=== PATIENT | male | born 1960 | race Caucasian/White ===

== ENCOUNTER 2016-09-11 21:06 | Emergency (ER) | payer OTHER ==
[2016-09-11 21:27] VITALS: BP 129/92
[2016-09-11] MEDS ORDERED: Cephalexin CAP* 500 MG PO ONE (21:45)
--- NOTE | 2016-09-11 21:54 | UC ---
Skin Complaint HPI - HPI Summary HPI Summary: 55 yo male was cleaning a shelf about a week ago FB left index finger since then red and swollen no f/c Td up to date - History of Current Complaint Chief Complaint: UCSkin Stated Complaint: LEFT INDEX FINGER PAIN Onset/Duration: Sudden Onset, Lasting Days Timing: Constant Onset Severity: Mild Current Severity: Mild Pain Intensity: 3 - worse if he touches it Pain Scale Used: 0-10 Numeric Location: Other - LIF Character: Swelling, Pain, Redness Aggravating: Touch Alleviating: Nothing Associated Signs & Symptoms: Positive: Tenderness Related History: Foreign Body - Allergy/Home Medications Allergies/Adverse Reactions: Allergies Allergy/AdvReac Type Severity Reaction Status Date / Time No Known Allergies Allergy Verified 09/11/16 21:23 Home Medications: Home Medications Cholesterol Medication 1 tab PO DAILY 09/11/16 [History Confirmed 09/11/16] Review of Systems Constitutional: Negative Skin: Negative Eyes: Negative ENT: Negative Respiratory: Negative Cardiovascular: Negative Gastrointestinal: Negative Genitourinary: Negative Motor: Negative Neurovascular: Negative Musculoskeletal: Negative Neurological: Negative Psychological: Negative All Other Systems Reviewed And Are Negative: Yes PMH/Surg Hx/FS Hx/Imm Hx Previously Healthy: Yes Endocrine History: Dyslipidemia - Surgical History Surgical History: None - Family History Known Family History: Positive: Hypertension - Social History Alcohol Use: None Substance Use Type: None Smoking Status (MU): Never Smoked Tobacco Physical Exam Triage Information Reviewed: Yes Appearance: Well-Appearing, Well-Nourished, Ill-Appearing Vital Signs: Initial Vital Signs Temp 98.8 F 09/11/16 21:23 Pulse 69 09/11/16 21:23 Resp 16 09/11/16 21:23 BP 129/92 09/11/16 21:23 Pulse Ox 96 09/11/16 21:23 Vital Signs Reviewed: Yes Eyes: Positive: Conjunctiva Clear ENT: Positive: Hearing grossly normal. Negative: Nasal congestion, Nasal drainage, Trismus, Muffled/hoarse voice Neck: Positive: Supple, Nontender Respiratory: Positive: Lungs clear, Normal breath sounds, No respiratory distress, No accessory muscle use Cardiovascular: Positive: RRR, No Murmur Musculoskeletal: Positive: ROM Intact Neurological Exam: Normal Neurological: Positive: Alert, Muscle Tone Normal Skin Exam: Other - see image Course/Dx - Diagnoses Provider Diagnoses: foreign body removal left index finger Procedures - Procedure Summary Procedure Summary: FOREIGN BODY REMOVAL time out sterile prep no anesthesia scab unroofed glass shard removed one drop of pus expressed tolerated procedure well Discharge - Discharge Plan Condition: Stable Disposition: HOME Prescriptions: Cephalexin CAP* [Keflex CAP*] 500 mg PO QID #12 cap Patient Education Materials: Soft Tissue Foreign Body (ED) Referrals: Aniket Nice MD [Primary Care Provider] - If Needed Additional Instructions: warm soapy soaks 2-4 x day until completely better recheck in 4-5 days if you are having any pain
== END 2016-09-11 22:02 | disposition home or self-care (01) ==
LOC: UCCORT 21:06
DX: M79.5 Residual foreign body in soft tissue (principal); E78.5 Hyperlipidemia, unspecified
CPT/HCPCS: 10120; 99212; A9270-GY; G0463

== ENCOUNTER 2016-10-20 13:26 | Emergency (ER) | payer SELFPAY ==
[2016-10-20 13:33] VITALS: BP 123/82
--- NOTE | 2016-10-20 13:49 | UC ---
Upper Extremity HPI - HPI Summary HPI Summary: 56 y/o male presents to the urgent care c/o Rt thumb pain for the past week. Pain is 8/10 specially at touch, w/ mild swelling. Pt denies any injury, numbness or tingling over the thumb, fever, SOB, chest pain, N/V/D. Pt has been taking tylenol, but symptoms are not improving. Pt has not other complains. - History of Current Complaint Chief Complaint: UCUpperExtremity Stated Complaint: RIGHT THUMB PAIN Time Seen by Provider: 10/20/16 13:33 Hx Obtained From: Patient Onset/Duration: Gradual Onset, Lasting Days, Still Present Severity Initially: Mild Severity Currently: Moderate Pain Intensity: 8 Pain Scale Used: 0-10 Numeric Location Of Pain: Is Discrete @ - RT MCPJ Character: Sharp Aggravating Factor(s): Movement, Flexion Alleviating Factor(s): OTC Meds Associated Signs And Symptoms: Positive: Swelling. Negative: Redness, Weakness , Numbness/Tingling Related History: Dominant Hand Right - Risk Factors Non-Orthopedic Risk Factor: Negative DVT Risk Factors: Negative Septic Arthritis Risk Factor: Negative - Allergies/Home Medications Allergies/Adverse Reactions: Allergies Allergy/AdvReac Type Severity Reaction Status Date / Time No Known Allergies Allergy Verified 10/20/16 13:34 Home Medications: Home Medications Aspirin Low Dose CHEW TAB* [Aspirin Low Dose TAB*] 81 mg PO DAILY 10/20/16 [ History Confirmed 10/20/16] PMH/Surg Hx/FS Hx/Imm Hx Previously Healthy: Yes Endocrine History: Dyslipidemia - Surgical History Surgical History: Yes Surgery Procedure, Year, and Place: vascectomy - Family History Known Family History: Positive: Hypertension - Social History Occupation: Employed Full-time Lives: With Family Alcohol Use: Weekly Substance Use Type: None Smoking Status (MU): Former Smoker Review of Systems Skin: Negative Eyes: Negative ENT: Negative Respiratory: Negative Cardiovascular: Negative Gastrointestinal: Negative Genitourinary: Negative Neurovascular: Negative Musculoskeletal: Other: - RT thumb pain Neurological: Negative Psychological: Negative All Other Systems Reviewed And Are Negative: Yes Physical Exam Triage Information Reviewed: Yes Appearance: Well-Appearing, No Pain Distress, Well-Nourished, Obese Vital Signs: Initial Vital Signs Temp 98.4 F 10/20/16 13:30 Pulse 71 10/20/16 13:30 Resp 14 10/20/16 13:30 BP 123/82 10/20/16 13:30 Pulse Ox 95 10/20/16 13:30 Vital Signs Reviewed: Yes Eye Exam: Normal Eyes: Positive: Conjunctiva Clear - PERRLA, EOMI, fundi grossly normal ENT Exam: Normal ENT: Positive: Normal ENT inspection, Hearing grossly normal, Pharynx normal, TMs normal Dental Exam: Normal Neck exam: Normal Neck: Positive: Supple, Nontender, No Lymphadenopathy Respiratory Exam: Normal Respiratory: Positive: Chest non-tender, Lungs clear, Normal breath sounds, No respiratory distress Cardiovascular Exam: Normal Cardiovascular: Positive: RRR, No Murmur, Pulses Normal, Brisk Capillary Refill Abdominal Exam: Normal Abdomen Description: Positive: Nontender, No Organomegaly, Soft. Negative: CVA Tenderness (R), CVA Tenderness (L) Bowel Sounds: Positive: Present Musculoskeletal Exam: Normal Musculoskeletal: Positive: Strength Intact, Other: - RT # 1 phalax w/ limited ROM due to pain, mild swelling at the first MCPJ, tender to palpation, Positive sensation, brisk capillary refill, positive pulses in all extremities. Neurological Exam: Normal Psychological Exam: Normal Skin Exam: Normal Upper Extremity Course/Dx - Course Course Of Treatment: 56 y/o male presents to the urgent care c/o Rt thumb pain for the past week. Pain is 8/10 specially at touch, w/ mild swelling. Pt denies any injury, numbness or tingling over the thumb, fever, SOB, chest pain, N/V/D. Pt has been taking tylenol, but symptoms are not improving. Pt has not other complains, Hx obtained. PE abnormal findings:RT # 1 phalax w/ limited ROM due to pain, mild swelling at the first MCPJ, tender to palpation, Positive sensation, brisk capillary refill, positive pulses in all extremities. RT #1 Phalanx x-ray orderd, Impression: Polyarticular mild osteoarthritis w/o significant interval changes. Pr Rx Ibuprofen PO after meals prn to alleviate symptoms. Advised to f/u with his PCP if symptoms do not improve. Pt understood and agreed and Left the clinic ambulating - Differential Dx/Diagnosis Differential Diagnosis/HQI/PQRI: Arthritis, Bursitis, Fracture (Closed), Other - gout. Provider Diagnoses: 1- Acute RT # 1 MCPJ phalanx pain Discharge - Discharge Plan Condition: Stable Disposition: HOME Prescriptions: Ibuprofen TAB* [Motrin TAB* 800 MG] 800 mg PO Q6H #30 Patient Education Materials: Osteoarthritis (ED) Referrals: Aniket Nice MD [Primary Care Provider] - 1 Week Additional Instructions: Please take medication as directed after meals to alleviate symptoms of pain and swelling. If pain continues please f/u with your PCP for further evaluation and treatment.
--- NOTE | 2016-10-20 14:13 | RAD ---
Indication: RIGHT thumb pain and swelling for 2 weeks without preceding injury. Comparison: December 05, 2015 RIGHT hand radiographs. Technique: AP, lateral, and oblique views RIGHT thumb. Report: Negative for fracture or malalignment. Mild osteophytosis present from the trapezium first metacarpal joint through the interphalangeal joint distally without significant joint space narrowing. Unremarkable soft tissue contours. IMPRESSION: Polyarticular mild osteoarthritis without significant interval change.
== END 2016-10-20 14:28 | disposition home or self-care (01) ==
LOC: UCCORT 13:26
DX: M25.541 Pain in joints of right hand (principal); E78.5 Hyperlipidemia, unspecified; Z79.82 Long term (current) use of aspirin
CPT/HCPCS: 99212; G0463

== ENCOUNTER 2018-01-06 21:25 | Emergency (ER) | payer SELFPAY ==
[2018-01-06 21:46] VITALS: BP 129/93
[2018-01-06] MEDS ORDERED: Cephalexin CAP* 500 MG PO ONE (21:46)
--- NOTE | 2018-01-06 21:52 | ED ---
Skin Complaint - HPI Summary HPI Summary: 57yr old male with redness and swelling to the left finger medial fold. Onset just today. No fever or chills. No arm pain. - History of Current Complaint Chief Complaint: UCSkin Time Seen by Provider: 01/06/18 21:42 Stated Complaint: FINGER COMPLAINT Pain Intensity: 7 - Allergy/Home Medications Allergies/Adverse Reactions: Allergies Allergy/AdvReac Type Severity Reaction Status Date / Time No Known Allergies Allergy Verified 01/06/18 21:35 Home Medications: Home Medications Cholecalciferol TAB* [Vitamin D TAB*] 1,000 unit PO DAILY 01/06/18 [History Confirmed 01/06/18] PMH/Surg Hx/FS Hx/Imm Hx - Surgical History Surgery Procedure, Year, and Place: vasectomy Infectious Disease History: Yes Infectious Disease History: Reports: Hx Hepatitis - Hep A Denies: Traveled Outside the [place] in Last 30 Days - Family History Known Family History: Positive: Hypertension - Social History Alcohol Use: Occasionally Substance Use Type: Reports: None Smoking Status (MU): Former Smoker Review of Systems Constitutional: Negative Positive: Other - redness skin fold nail All Other Systems Reviewed And Are Negative: Yes Physical Exam Triage Information Reviewed: Yes Vital Signs On Initial Exam: Initial Vitals Temp Pulse Resp BP Pulse Ox 98.6 F 73 22 129/93 97 01/06/18 21:37 01/06/18 21:37 01/06/18 21:37 01/06/18 21:37 01/06/18 21:37 Vital Signs Reviewed: Yes Appearance: Positive: Well-Appearing, No Pain Distress Skin: Positive: Other - paronychia left ring finger but early and no fluctuance. Head/Face: Positive: Normal Head/Face Inspection Eyes: Positive: EOMI Neck: Positive: Nontender Respiratory/Lung Sounds: Positive: Clear to Auscultation, Breath Sounds Present Cardiovascular: Positive: RRR. Negative: Murmur Abdomen Description: Negative: Distended Musculoskeletal: Positive: Strength/ROM Intact Neurological: Positive: Sensory/Motor Intact, Alert, Oriented to Person Place, Time, CN Intact II-III Diagnostics - Vital Signs Vital Signs Temp Pulse Resp BP Pulse Ox 01/06/18 21:37 98.6 F 73 22 129/93 97 - Laboratory Lab Statement: Any lab studies that have been ordered have been reviewed, and results considered in the medical decision making process. Course/Dx - Course Course Of Treatment: paronychia left ring finger. Rx with keflex. - Diagnoses Provider Diagnoses: Paronychia Discharge - Sign-Out/Discharge Documenting (check all that apply): Patient Departure All imaging exams completed and their final reports reviewed: No Studies - Discharge Plan Condition: Good Disposition: HOME Prescriptions: Cephalexin CAP* [Keflex CAP*] 500 mg PO TID #30 cap Patient Education Materials: Paronychia (ED) Referrals: Aniket Nice MD [Primary Care Provider] - - Billing Disposition and Condition Condition: GOOD Disposition: Home
== END 2018-01-06 22:10 | disposition home or self-care (01) ==
LOC: UCCORT 21:25
DX: L03.012 Cellulitis of left finger (principal); Z87.891 Personal history of nicotine dependence
CPT/HCPCS: 99212; A9270-GY; G0463

== ENCOUNTER 2018-10-17 17:25 | Emergency (ER) | payer SELFPAY ==
[2018-10-17 18:10] VITALS: BP 130/85
--- NOTE | 2018-10-17 18:26 | UC ---
General HPI - HPI Summary HPI Summary: PT IS C/O WHAT HE THINKS ARE INSECT BITES TO HIS LEGS AND BUTTOCK X 1 WEEK. HE HAS BEEN OUTSIDE PAINTING LATELY. THE SPOTS ARE VERY ITCHY. REST OF FAMILY IS OK. - History of Current Complaint Chief Complaint: UCSkin Stated Complaint: SKIN CONCERN Time Seen by Provider: 10/17/18 18:05 Hx Obtained From: Patient Pain Intensity: 3 Associated Signs & Symptoms: Negative: Edema, Fever - Allergy/Home Medications Allergies/Adverse Reactions: Allergies Allergy/AdvReac Type Severity Reaction Status Date / Time No Known Allergies Allergy Verified 10/17/18 18:03 Home Medications: Home Medications Arthritis Pain Reliever 1 tab PO TID PRN 10/17/18 [History Confirmed 10/17/18] PMH/Surg Hx/FS Hx/Imm Hx - Additional Past Medical History Additional PMH: oa Endocrine History: Dyslipidemia - Surgical History Surgical History: Yes Surgery Procedure, Year, and Place: vasectomy - Family History Known Family History: Positive: Hypertension - Social History Occupation: Employed Full-time Alcohol Use: Occasionally Substance Use Type: None Smoking Status (MU): Former Smoker When Did the Patient Quit Smoking/Using Tobacco: 2016 - Immunization History Most Recent Tetanus Shot: 2018 Review of Systems All Other Systems Reviewed And Are Negative: No Constitutional: Negative: Fever, Chills Skin: Positive: Rash Motor: Negative: Decreased ROM Musculoskeletal: Negative: Edema Physical Exam Triage Information Reviewed: Yes Appearance: Well-Appearing Vital Signs: Initial Vital Signs Temp 98.3 F 10/17/18 18:06 Pulse 76 10/17/18 18:06 Resp 16 10/17/18 18:06 BP 130/85 10/17/18 18:06 Pulse Ox 96 10/17/18 18:06 Vital Signs Reviewed: Yes Neck: Positive: Supple Respiratory: Positive: No respiratory distress Musculoskeletal: Positive: ROM Intact, No Edema Neurological: Positive: Alert Psychological: Positive: Age Appropriate Behavior Skin Exam: Normal, Other - pt has multiple bites to BLE's and a couple to his buttock(about 12 total). all are excoriated. there is no discharge, burrows, cellulitis, scale. Course/Dx - Course Course Of Treatment: pt's main issue is the itching. - Diagnoses Provider Diagnosis: Insect bites Discharge - Sign-Out/Discharge Documenting (check all that apply): Patient Departure All imaging exams completed and their final reports reviewed: No Studies - Discharge Plan Condition: Stable Disposition: HOME Prescriptions: predniSONE [Prednisone 20 MG TAB] 40 mg PO DAILY #10 tablet Triamcinolone 0.1% OINT(NF) [Kenolog 0.1% OINT(NF)] 1 applic .SEE ORDER BID 5 Days #1 oint Patient Education Materials: Insect Bite or Sting (ED) Referrals: Aniket Nice MD [Primary Care Provider] - Additional Instructions: FOLLOW UP IF NOT BETER IN 5 DAYS OR SOONER IF WORSE - Billing Disposition and Condition Condition: STABLE Disposition: Home
== END 2018-10-17 18:39 | disposition home or self-care (01) ==
LOC: UCCORT 17:25
DX: S80.862A Insect bite (nonvenomous), left lower leg, initial encounter (principal); S80.861A Insect bite (nonvenomous), right lower leg, initial encounter; S30.860A Insect bite (nonvenomous) of lower back and pelvis, initial encounter; W57.XXXA Bitten or stung by nonvenomous insect and other nonvenomous arthropods, initial encounter; Y93.89 Activity, other specified; Y92.9 Unspecified place or not applicable; M19.90 Unspecified osteoarthritis, unspecified site; Z87.891 Personal history of nicotine dependence
CPT/HCPCS: 99212; G0463